=== PATIENT | male | born 1995 | race Caucasian/White ===

== ENCOUNTER 2021-01-06 07:53 | Inpatient (IN) | payer MEDICARE, BC ==
[~2021-01-06] VITALS: Ht 190.5 cm; Wt 65.9 kg
[2021-01-06 09:03] LABS: BASO % 0.3 % (0.0-2.0); EOS % 0.1 % (0-4.0); GRAN # 8.1 (1.4-6.5); GRAN % 86.4 % (42.2-75.2); HEMATOCRIT 40.3 % (42.0-52.0); HEMOGLOBIN 13.4 g/dl (13.5-18.0); LYMPH # 0.9 (1.2-3.4); LYMPH % 9.1 % (20.0-51.0); MEAN CELL VOLUME 82 fl (80.0-100.0); MEAN CORPUSCULAR HEMOGLOBIN 27 pg (27.0-31.0); MEAN CORPUSCULAR HGB CONC 33 g/dl (33.0-37.0); MONO # 0.4 (0.1-0.6); MONO % 3.9 % (1.7-9.3); PLATELET COUNT 198 K/mm3 (130-400); RED BLOOD COUNT 4.91 M/mm3 (4.20-5.60); REDCELL DISTRIBUTION WIDTH-CV 12.5 % (11.5-14.5)
[2021-01-06 09:14] LABS: ALBUMIN 4.1 gm/dL (3.5-5.0); BILIRUBIN,TOTAL 0.4 mg/dL (0.0-1.0); CALCIUM 8.8 mg/dL (8.4-10.2); CREATININE, serum 0.67 (0.66-1.25); POTASSIUM 3.6 mmol/L (3.4-5.0)
[2021-01-06 09:17] LABS: INR 1.1 (0.8-3.0); PROTHROMBIN TIME 12.7 SECONDS (9.7-12.8)
[2021-01-06 09:20] LABS: PARTIAL THROMBOPLASTIN TIME 30.2 SECONDS (26.0-37.0)
[2021-01-06 09:26] LABS: TROPONIN-I 0.015 ng/mL (0.000-0.035)
[2021-01-06 12:41] VITALS: BP 112/55; PULSE 120; TEMP 98.6
[2021-01-06] MEDS ORDERED: LEVEMIR100 U/ML SQ (15:13)
[2021-01-06] MEDS ORDERED: NOVOLOG FLEX100 U/ML SQ (15:14)
[2021-01-06 17:11] VITALS: BP 114/58; PULSE 97; TEMP 98.3
--- NOTE | 2021-01-06 17:15 | NUR ---
Assessment completed, drowsy but alert/oriented, tachycardia/ other vital signs stable, denies pain, right frontal head laceration was glued in the ER, fsbs have been stable sence arriving to ER, mother present, heart RRR/ distal pulses are palpable, lungs CTA/ no resp.diffculty, patient reporst he had been drinking alchol prior to incident, patient and mother report a hypoglycemic related seiz in the distant past, Seiz. P/c in place, IVF infusing, the deny other needs, meds/allegies/pharm reviewed, discussed plan of care with hospitalist
[2021-01-06 20:03] VITALS: BP 111/56; PULSE 98; TEMP 98.5
--- NOTE | 2021-01-06 22:21 | NUR ---
Patient assessed around 2019. Alert and oriented x 4, and able to make needs known. Reported level 5 pain to back. Given PRN APAP as requested, which patient reports is effective at this time. Peripheral IV to right forearm, with fluids running per orders. Denies having SOB and dyspnea. LS CTA throughout, except diminished in left lower. Respirations even and unlabored. HRR. Telemetry in place. Capillary refill less than 3 seconds. Non-tenting skin turgor. BSAx4. Abdomen soft and non-tender. No edema. Bandaid to laceration on head is CDI. Voices no questions, needs, or concerns at this time. Resting in bed with call light within reach.
[2021-01-07 00:11] VITALS: BP 96/51; PULSE 99; TEMP 97.9
[2021-01-07 00:48] LABS: COLLECTION METHOD CLEAN CATCH
[2021-01-07 00:55] LABS: PH 7 (5-8); SQUAMOUS EPITHELIAL 0-2 /hpf; URINE APPEARANCE Clear; URINE BACTERIA None Seen /hpf; URINE BILIRUBIN Negative (NEGATIVE); URINE BLOOD Negative (NEGATIVE); URINE COLOR Straw; URINE GLUCOSE 3+ (NEGATIVE); URINE KETONE Negative (NEGATIVE); URINE LEUKOCYTE ESTERASE Negative (NEGATIVE); URINE NITRATE Negative (NEGATIVE); URINE PROTEIN(semi-quant) Negative (NEGATIVE); URINE RBC None Seen /hpf; URINE UROBILINOGEN Negative (NEGATIVE)
[2021-01-07 01:06] LABS: TRICYCLIC ANTIDEPRESS URINE NEGATIVE
[2021-01-07 04:49] VITALS: BP 128/67; PULSE 79; TEMP 98.4
--- NOTE | 2021-01-07 05:33 | NUR ---
Patient has not voiced any further complaints of pain or discomfort since receiving PRN APAP at bedtime. Voices no questions, needs, or concerns at this time. IV fluids continue per orders. Resting in bed with call light within reach.
[2021-01-07 06:31] LABS: BASO # 0.1 (0.0-0.2); BASO % 0.3 % (0.0-2.0); EOS # 0.1 (0.0-0.7); EOS % 0.5 % (0-4.0); GRAN # 11.9 (1.4-6.5); GRAN % 78.9 % (42.2-75.2); HEMOGLOBIN 11.5 g/dl (13.5-18.0); LYMPH # 2.1 (1.2-3.4); LYMPH % 14.1 % (20.0-51.0); MEAN CELL VOLUME 84 fl (80.0-100.0); MEAN CORPUSCULAR HEMOGLOBIN 28 pg (27.0-31.0); MEAN CORPUSCULAR HGB CONC 34 g/dl (33.0-37.0); MEAN PLATELET VOLUME 9.6 fl (7.4-10.4); MONO # 0.9 (0.1-0.6); MONO % 5.8 % (1.7-9.3); PLATELET COUNT 177 K/mm3 (130-400); RED BLOOD COUNT 4.09 M/mm3 (4.20-5.60); REDCELL DISTRIBUTION WIDTH-CV 12.9 % (11.5-14.5)
[2021-01-07 06:37] LABS: CALCIUM 7.9 mg/dL (8.4-10.2); CREATININE, serum 0.65 (0.66-1.25); POTASSIUM 3.8 mmol/L (3.4-5.0)
[2021-01-07 06:41] LABS: HEMATOCRIT 34.2 % (42.0-52.0)
[2021-01-07 06:48] LABS: TROPONIN-I 0.014 ng/mL (0.000-0.035)
[2021-01-07 09:01] VITALS: BP 122/61; PULSE 83; TEMP 98.8
--- NOTE | 2021-01-07 11:36 | NUR ---
Assessment completed, alert/oriented, vital signs stable/ HR has improve and patient no longer tachycardic, heart RRR/SR on tele with BBB, lungs CTA/ diminished LLL, patient has coarse cough, IV levaquin ordered, still feels hard to get good breath at times and even some mild chest dsicomfort associated with this, Cardiology consulted and has been in to evaluate him, ECHO ordered, blood sugars have been stable/ no hypoglycemic episodes, no seiz activity noted/ continue with seiz p/c for now, motherr present at bedside, will cotninue to monitor
[2021-01-07 11:37] VITALS: BP 135/72; PULSE 76; TEMP 98.5
[2021-01-07 16:47] VITALS: BP 127/61; PULSE 62; TEMP 99.5
--- NOTE | 2021-01-07 18:48 | NUR ---
Received report from Danny. Seen patient in bed, eating his dinner. Patient's mom at bedside. With IV infusing at right forearm with NS at 150ml/hr.
[2021-01-07 19:16] VITALS: BP 145/76; PULSE 101; TEMP 98.5
--- NOTE | 2021-01-07 20:27 | NUR ---
Assesment done. Patient is alert and oriented. Neuro checks done. Good strength on all his extremities. With IV on right forearm infusing NS at 75ml/hr. With INT on right AC. Blood glucose at 259mg/dl. According to sliding scale, he will have 6 units of Novolog but patient wants to have 2 units only. Beverly RIVERA aware.
[2021-01-08] VITALS (7 sets, daily range): BP systolic 112–139; BP diastolic 54–89; PULSE 54–77; TEMP 98.3–98.7
--- NOTE | 2021-01-08 06:04 | NUR ---
Patient was able to sleep last night. He denies severe pain and states "it's still the same from before". Will endorse to day shift nurse.
[2021-01-08 06:25] LABS: BASO # 0.1 (0.0-0.2); BASO % 0.5 % (0.0-2.0); EOS # 0.2 (0.0-0.7); EOS % 1.7 % (0-4.0); GRAN # 7.7 (1.4-6.5); GRAN % 70.5 % (42.2-75.2); HEMOGLOBIN 11.9 g/dl (13.5-18.0); LYMPH # 2.2 (1.2-3.4); LYMPH % 19.9 % (20.0-51.0); MEAN CELL VOLUME 83 fl (80.0-100.0); MEAN CORPUSCULAR HEMOGLOBIN 28 pg (27.0-31.0); MEAN CORPUSCULAR HGB CONC 34 g/dl (33.0-37.0); MEAN PLATELET VOLUME 9.5 fl (7.4-10.4); MONO # 0.8 (0.1-0.6); PLATELET COUNT 181 K/mm3 (130-400); RED BLOOD COUNT 4.26 M/mm3 (4.20-5.60); REDCELL DISTRIBUTION WIDTH-CV 12.6 % (11.5-14.5)
[2021-01-08 06:38] LABS: CALCIUM 8.3 mg/dL (8.4-10.2); CREATININE, serum 0.7 (0.66-1.25); HEMATOCRIT 35.2 % (42.0-52.0); POTASSIUM 3.8 mmol/L (3.4-5.0)
--- NOTE | 2021-01-08 07:00 | NUR ---
Report with MEGHAN Crow. Pt resting in bed with eyes closed but awakens upon our entry into the room, denies pain or needs at this time. Pt reports no insulin needed with blood sugar of 145. IVF's infusing per orders without s/s of complications. Call light in reach.
--- NOTE | 2021-01-08 08:40 | NUR ---
Assessment complete. Pt sitting up in bed, visiting with mother, denies pain or further c/o at this time. Physical assessment unremarkable. IV to right forearm without s/s of complications, fluids complete at this time and pt asking to shower so IV tubing disconnected and provider recommends waiting to administer a new bag of fluids until after rounding. No further needs reported. Call light in reach.
--- NOTE | 2021-01-08 10:18 | NUR ---
Initial visit; Patient thanked Tribunal Member for looking in on him and offering God's blessings.
--- NOTE | 2021-01-08 11:40 | NUR ---
HELENA met with the patient and his mother, Di Corrigan (ph#[phone]), to discuss discharge plan. The patient lives in [place], [place] with his father, Kashmir Mcgee. The patient states that he was up here visiting family. His mother lives in [place]. He reports independence with ADLs and does not have any DME. The patient's PCP is Dr. Erasmo Emery in [place] and he receives his medications from [facility]. The patient states that he may have completed a DPOA-HC back home, but is unsure if he did and who he would have designated. He states that he is not and does not have any children. His parents are his next of kin. The patient plans to stay with family here upon discharge before returning back to [place]. No additional needs at this time. Discharge plan: home with family*
--- NOTE | 2021-01-08 13:30 | NUR ---
Pt ambulating in hallway with steady gait accompanied by pt's mother.
--- NOTE | 2021-01-08 17:33 | NUR ---
technical service specialist notifies this nurse of possible junctional rhythm. Order placed for 12-lead EKG to confirm per protocol and provider notified.
--- NOTE | 2021-01-09 01:04 | NUR ---
Shift assessment completed. Patient alert and oriented. Patient chest pain, SOB, N/V, headache, or dizziness. VS stable. All scheduled meds given per MAR. Call light within reach. Will continue to monitor.
[2021-01-09 04:07] VITALS: BP 107/62; PULSE 63; TEMP 98.1
--- NOTE | 2021-01-09 06:04 | NUR ---
Patient rested well throughout the night. VS stable. Marino output 750ml. Marino draining blood-tinged urine with minimal blood clots. Call light within reach.
[2021-01-09 06:48] LABS: BASO # 0.1 (0.0-0.2); EOS # 0.2 (0.0-0.7); EOS % 3.1 % (0-4.0); GRAN # 3.7 (1.4-6.5); GRAN % 60.6 % (42.2-75.2); HEMATOCRIT 37.6 % (42.0-52.0); HEMOGLOBIN 12.8 g/dl (13.5-18.0); LYMPH # 1.6 (1.2-3.4); LYMPH % 26.8 % (20.0-51.0); MEAN CELL VOLUME 83 fl (80.0-100.0); MEAN CORPUSCULAR HEMOGLOBIN 28 pg (27.0-31.0); MEAN CORPUSCULAR HGB CONC 34 g/dl (33.0-37.0); MEAN PLATELET VOLUME 9.3 fl (7.4-10.4); MONO # 0.5 (0.1-0.6); MONO % 8.2 % (1.7-9.3); PLATELET COUNT 192 K/mm3 (130-400); RED BLOOD COUNT 4.56 M/mm3 (4.20-5.60); REDCELL DISTRIBUTION WIDTH-CV 12.6 % (11.5-14.5)
[2021-01-09 07:04] LABS: CALCIUM 8.6 mg/dL (8.4-10.2); CREATININE, serum 0.7 (0.66-1.25); POTASSIUM 3.8 mmol/L (3.4-5.0)
[2021-01-09 07:56] VITALS: BP 119/68; PULSE 57; TEMP 98
[2021-01-09] MEDS ORDERED: LEVAQUIN 750MG750 M1 PO (08:39)
[2021-01-09] MEDS ORDERED: LEVEMIR100 U/ML SQ (08:42)
--- NOTE | 2021-01-09 09:17 | NUR ---
Assessment completed, alert/oriented, vital signs stable, denies any pain or discomfort, blood sugars controlled, no seiz activity observed or noted by nursing staff anna being admitted, heart RRR/ SR BBB on tele/ Cardiology would like holter monitor outpatient but said it would be fine for him to pursue this once he returns home to [place] next week, forehead lacertion is stable/ glued, he denies other needs, plans for discharge home today
--- NOTE | 2021-01-09 11:29 | NUR ---
Patient discharging, d/c instructions and orders reviewed with the patient and his mother, instructed to follow up with PCP as soon as he returns home to [place], discussed meds and to finish course of abx, script for Levaquin sent to pharmacy for him, instructed to decrease Levemir to 8 un BID, IV and tele removed, he is ambulatory and leaving with his mother at this time, i will personally escort him out the door
== END 2021-01-09 11:31 | disposition home or self-care (01) | DRG 871 ==
LOC: COL.ER 07:53 → MEDICAL 11:55
PROVIDERS: Emergency Medicine; Physician Assistant; ADMIT Student in an Organized Health Care Education/Training Program
DX: A41.9 Sepsis, unspecified organism (principal); J69.0 Pneumonitis due to inhalation of food and vomit; G40.909 Epilepsy, unspecified, not intractable, without status epilepticus; R55 Syncope and collapse; Z20.822 Contact with and (suspected) exposure to COVID-19; I45.10 Unspecified right bundle-branch block; Z89.202 Acquired absence of left upper limb, unspecified level; D64.9 Anemia, unspecified; M41.9 Scoliosis, unspecified; R01.1 Cardiac murmur, unspecified; E11.649 Type 2 diabetes mellitus with hypoglycemia without coma
CPT/HCPCS: 99223-AI; 99232-AI; 99233-AI; 99239; J1650; J1815; J1956; J2405; J7030; Q9967